=== PATIENT | male | born 1955 | race Caucasian/White ===

== ENCOUNTER 2016-12-20 06:17 | Day surgery (SDC) | payer OTHER ==
[2016-12-20] MEDS ORDERED: ceFAZolin 1 GM in NORMAL SALINE MINI-BAG+ 100 ML IV ONE ×2 (07:00→07:21)
[2016-12-20] MEDS ORDERED: FAMOTIDINE IN SALINE, ISO-OSM 50 ML IV ONE (07:18)
[2016-12-20] MEDS ORDERED: ACETAMINOPHEN 1,000 MG/100 ML VIAL IV ONE (07:18)
[2016-12-20] MEDS ORDERED: ceFAZolin 1 GM/10 ML VIAL ONE (07:19)
[2016-12-20] MEDS ORDERED: MIDAZOLAM HCL 2 MG/2 ML VIAL ONE (07:19)
[2016-12-20] MEDS ORDERED: ACETAMINOPHEN 1,000 MG/100 ML VIAL IV SCH ×2 (07:21→09:06)
[2016-12-20] MEDS ORDERED: FAMOTIDINE IN SALINE, ISO-OSM 20 MG/50 ML PIGGYBACK IV SCH ×2 (07:21→09:06)
[2016-12-20] MEDS ORDERED: LIDOCAINE HCL 1% 20 ML VIAL SUBCUT ONE (07:21)
[2016-12-20] MEDS ORDERED: MIDAZOLAM HCL 2 MG/2 ML SYR IV ONE (07:21)
[2016-12-20] MEDS ORDERED: FENTANYL 250 MCG/5 ML VIAL ONE (07:22)
[2016-12-20] MEDS ORDERED: BUPIVACAINE HCL/PF 0.25% 10 ML VIAL INJ ONE (07:59)
[2016-12-20] MEDS ORDERED: LACTATED RINGERS 1,000 ML IV SCH ×3 (08:00→09:06)
[2016-12-20] MEDS ORDERED: HEMOSTATIC MATRIX 5 ML SYR MISC ONE (08:49)
[2016-12-20] MEDS ORDERED: KETOROLAC TROMETHAMINE 30 MG/ML VIAL ONE (08:59)
[2016-12-20] MEDS ORDERED: ONDANSETRON HCL 4 MG/2 ML VIAL ONE (09:01)
[2016-12-20] MEDS ORDERED: MORPHINE SULFATE 10 MG/ML SYR IV PRN (09:06)
[2016-12-20] MEDS ORDERED: ONDANSETRON HCL 4 MG/2 ML VIAL IV PRN (09:06)
[2016-12-20] MEDS ORDERED: FENTANYL 100 MCG/2 ML VIAL IV PRN (09:06)
[2016-12-20 09:09] VITALS: TEMP 98.1
--- NOTE | 2016-12-20 09:20 | PROCEDURE NOTE: Gen Surgery ---
General Surgery Procedure Note - Date of Encounter Date of Encounter: 12/20/16 - Brief Operative Note (1) Unilateral inguinal hernia without obstruction or gangrene Date of procedure: 12/20/16 Pre-Op Diagnosis: right inguinal hernia Post-op diagnosis: same Procedure: right inguinal hernia repair Anesthesia Type: Mac Physician: KERI ONEIL Pathology: none sent X-ray taken: No Sponge and instrument counts: correct Condition: stable Disposition: same day Narrative: indirect right inguinal hernia. No direct or femoral defect noted. Ileo inguinal nerve was sacrificed.
[2016-12-20 09:50] VITALS: O2SAT 94
[2016-12-20 09:55] VITALS: BP 116/88; PULSE 56; RESP 10
--- NOTE | 2016-12-20 16:11 | OPERATIVE REPORT ---
DATE OF SURGERY: 12/20/16 SURGEON: Robert Jacobo MD ANESTHESIA: MAC by Chriss Pollock. PREOPERATIVE DIAGNOSIS: Right inguinal hernia. POSTOPERATIVE DIAGNOSIS: Indirect right inguinal hernia. PROCEDURE PERFORMED: Repair of right inguinal hernia. FINDINGS: The patient had an indirect right inguinal hernia sac. There was no femoral defect palpated. The direct space was without a hernia. The ilioinguinal nerve was sacrificed. A 10 cm piece of round mesh was placed in the preperitoneal space just below the deep ring. An overlying patch of Surgimesh was placed in a Eliana fashion. SUMMARY: The patient was taken to the operating room and placed in the supine position. He was given IV sedation and his right groin was shaved. A ChloraPrep cleansing was then applied. Three minutes were allowed to elapse. Time out was called and the correct patient, correct preoperative medications and correct procedure were verified. When 3 minutes had passed draping occurred. A 7 cm incision was marked out beginning just lateral to where the deep ring was estimated to be and coursing towards the pubic tubercle. Marcaine 0.25% without epinephrine was infiltrated and then the skin sharply incised. Deep resection was done with cautery. The external oblique aponeurosis was identified. The aponeurosis was opened up through the external ring. Initially the ilioinguinal nerve was spared. A cord was controlled at the pubic tubercle in a circumferential fashion and a Coby drain placed. Next, the cremasteric muscles were divided with either cautery or clamping and tying them. The indirect sac was then dissected off the cord and reduced into the preperitoneal space. A brown piece of Surgimesh was then brought in the field. The preperitoneal space was bluntly dissected free and the mesh was placed in the preperitoneal space. It was 10 cm and round and a notch was cut to surround the cord. Over this a piece of Surgimesh cut in a Eliana configuration was sewn in place with 2-0 Prolene. The two leaves of the mesh were brought together with a 2-0 Prolene and the size of the ring was the size of my small finger. The ilioinguinal nerve could not be spared without having it in direct contact with the mesh so it was divided. Following this, Floseal was placed in the preperitoneal space below the mesh and on the cord. The external oblique aponeurosis was then closed with a running 3-0 Vicryl. The subcu was closed with interrupted 3-0 Vicryl and the skin was closed with running subcuticular 4-0 Monocryl. Steri-Strips and dressing were then applied , anesthesia reversed and the patient taken from the operating room to the recovery room. ELEANOR
--- NOTE | 2016-12-23 11:36 | PREOPERATIVE H&P ---
History of Present Illness (Robert Jacobo M.D.; 12/13/2016 10:18 AM) The patient is a 61 year old male who presents with an inguinal hernia. The hernia is located on the right side. Symptoms include inguinal bulge. The pain is located in the right inguinal area. Onset was sudden 1 month ago. Onset followed lifting. The episodes occur daily. The patient describes this as moderate in severity and unchanged. Symptoms are exacerbated by straining and lifting. Current treatment includes manual reduction. This problem has not been previously evaluated. Problem List/Past Medical (Robert Jacobo M.D.; 12/13/2016 10:21 AM) Cataract, immature (H26.9) Early cataracts OU (not visually-significant presently). Presbyopia OU (H52.4) Hearing loss, unspecified laterality (H91.90) DJD (degenerative joint disease) (M19.90) Allergies (Denise Olea M.A.; 12/13/2016 9:48 AM) Penicillins (Amoxicillin, Augmentin, Unasyn...) Possible reaction as an (received IM penicillin later - as a child - with no adverse reaction). Family History (Robert Jacobo M.D.; 12/13/2016 10:21 AM) No Significant Family Ocular History Social History (Robert Jacobo M.D.; 12/13/2016 10:21 AM) Alcohol Use Occasional alcohol use. Tobacco Use Never smoker. Vehicle Driving Yes. Medication History (Denise Olea M.A.; 12/13/2016 9:49 AM) Finasteride (Oral) Specific dose unknown - Active. Flomax (0.4MG Capsule, 1 Oral daily) Active. No Current Medications (Taken starting 12/13/2016) Medications Reconciled Past Surgical History (Robert Jacobo M.D.; 12/13/2016 10:21 AM) Shoulder Surgery Rotator cuff surgeries of both shoulders (5 surgeries total). Hip Replacement, Total Left hip - in about 2007. Knee Replacement, Total Right knee 07/10/2013. Other Problems (Robert Jacobo M.D.; 12/13/2016 10:21 AM) Health education/counseling (Z71.89) Tdap (V06.1) 78121 (Z23) Review of Systems (Robert Jacobo M.D.; 12/13/2016 10:21 AM) General Present- Feeling well. Not Present- Chills and Fever. Respiratory Not Present- Chest Pressure and Lung Problems. Cardiovascular Not Present- Chest Pain and Heart Problems. Gastrointestinal Not Present- Bloating and Constipation. Male Genitourinary Present- Dysuria (Using finasteride and Flomax.). Musculoskeletal Present- Arthralgia and Joint Stiffness. Neurological Not Present- Neurological Problems and Seizures. Endocrine Not Present- Diabetes and Thyroid Problems. Hematology Not Present- Anemia and DVT. Vitals (Denise Olea M.A.; 12/13/2016 9:53 AM) 12/13/2016 9:50 AM Weight: 182 lb Height: 70in Body Surface Area: 2.01 m Body Mass Index: 26.11 kg/m Temp.: 98.1F(Temporal) Pulse: 68 (Regular) Resp.: 16 (Unlabored) P.OX: 93% (Room air) BP: 110/78 (Sitting, Left Arm, Standard) Physical Exam (Robert Jacobo M.D.; 12/13/2016 10:23 AM) Abdomen Inspection Inspection of the abdomen reveals - Soft and Non-tender. Hernias - Direct Right Inguinal - Reducible. Note: No left inguinal hernia noted. Contour - Normal. Umbilicus - Normal. Auscultation Auscultation of the abdomen reveals - Bowel sounds normal. Assessment & Plan (Robert Jacobo M.D.; 12/13/2016 10:25 AM) Health education/counseling (Z71.89) Current Plans Pt Education - How to access health information online: discussed with patient and provided information. Unilateral inguinal hernia without obstruction or gangrene, recurrence not specified (K40.90) Current Plans INITIAL REPAIR OF REDUCIBLE INGUINAL,5+YRS (40325) Pt Education - Terence Patient Education: discussed with patient and provided information. Note:His hernia is symptomatic enough to warrant repair. I discussed the repair with him and gave him a booklet about it. We discussed the anesthesia. We discussed the mesh that would be used to repair it. I discussed the laparoscopic approach to hernia repair and told him I did not repair them this week. He would like to proceed with surgery so we have scheduled that for Monday, December 21. He will see me for a preop visit next week prior to the surgery. Medical Decision Making (Robert Jacobo M.D.; 12/13/2016 10:28 AM) Amount/complexity of data to be reviewed: - Decision to obtain old medical records - Review and summarization of old records Signed by Robert Jacobo M.D. (12/13/2016 10:28 AM) There are no interval changes. Signed Robert Jacobo MD 12/20/2016 [facility]
== END 2016-12-20 10:14 | disposition home or self-care (01) ==
LOC: SDS 06:17
PROVIDERS: ATTEND Surgery
DX: K40.90 Unilateral inguinal hernia, without obstruction or gangrene, not specified as recurrent (principal)
CPT/HCPCS: J0690; J1885; J2250; J2405